=== PATIENT | female | born 1990 | race Caucasian/White ===

== ENCOUNTER 2017-11-22 14:01 | Inpatient (IN) | payer OTHER ==
[2017-11-22] VITALS (60 sets, daily range): BP systolic 92; BP diastolic 77; PULSE 85–118; RESP 15; TEMP 98
[~2017-11-22] VITALS: Ht 162.6 cm; Wt 93.0 kg
[2017-11-22] MEDS: SODIUM CHLORIDE 0.9% FLUSH 10 ML FLUSH IV FLUSH PRN ×2 (14:30→19:33)
[2017-11-22] MEDS ORDERED: PREN29TA PO (14:51)
[2017-11-22] MEDS ORDERED: OMEGCAP PO (14:52)
[2017-11-22] MEDS ORDERED: DINOPROSTONE 10 MG INSERT-LEAVE FOR 12 HOURS VAGINAL ONE (15:00)
[2017-11-22] MEDS ORDERED: SODIUM CHLORIDE 0.9% FLUSH 10 ML FLUSH IV FLUSH PRN (15:00)
[2017-11-22 15:03] LABS: AUTOMATED NEUTROPHIL # 9.6 TH/MM3 (1.8-7.7); BASOPHIL # 0.1 TH/MM3 (0-0.2); BASOPHIL % 0.4 % (0.0-2.0); EOSINOPHIL # 0.1 TH/MM3 (0-0.4); EOSINOPHIL % 0.5 % (0.0-4.0); HEMATOCRIT 39.2 % (35.0-46.0); HEMOGLOBIN 13.1 GM/DL (11.6-15.3); LYMPH % 12.3 % (9.0-44.0); LYMPHOCYTE # 1.4 TH/MM3 (1.0-4.8); MEAN CORPUSCULAR HEMOGLOBIN 30.4 PG (27.0-34.0); MEAN CORPUSCULAR HGB CONC 33.4 % (32.0-36.0); MEAN PLATELET VOLUME 9.3 FL (7.0-11.0); MONO % 4.1 % (0.0-8.0); MONOCYTE # 0.5 TH/MM3 (0-0.9); NEUT % 82.7 % (16.0-70.0); PLATELET COUNT 234 TH/MM3 (150-450); RED BLOOD COUNT 4.31 MIL/MM3 (4.00-5.30); RED CELL DISTRIBUTION WIDTH 14.6 % (11.6-17.2); WHITE BLOOD COUNT 11.6 TH/MM3 (4.0-11.0)
[2017-11-22] MEDS ORDERED: CITRIC ACID-SODIUM CITRATE LIQ 30 ML UDC PO SCH (15:15)
[2017-11-22] MEDS ORDERED: LACTATED RINGER'S 1000 ML BOLUS IV PRN (15:15)
[2017-11-22] MEDS ORDERED: LIDOCAINE HCL 1% 50 ML VIAL INFIL PRN (15:15)
[2017-11-22] MEDS ORDERED: NS 1000 ML IV PRN (15:15)
[2017-11-22] MEDS ORDERED: OXYTOCIN 30 UNITS 500ML PREMIX IV ONE (15:15)
[2017-11-22] MEDS ORDERED: NS 500 ML BOLUS IV PRN (15:15)
[2017-11-22] MEDS ORDERED: LIDOCAINE HCL 1% 50 ML VIAL I-DERMAL PRN (15:15)
[2017-11-22] MEDS ORDERED: OXYTOCIN 30 UNITS/NS 500ML PREMIX IV PRN (15:15)
[2017-11-22] MEDS ORDERED: MINERAL OIL 10 ML VIAL TOPICAL PRN (15:15)
[2017-11-22 15:20] LABS: BACTERIA, URINE RARE /hpf; BILIRUBIN, URINE NEG (NEG); BLOOD, URINE NEG (NEG); GLUCOSE,URINE NEG (NEG); KETONE, URINE NEG (NEG); NITRITE,URINE NEG (NEG); URINE COLOR YELLOW (YELLW/STRAW); URINE LEUKOCYTE ESTERASE NEG (NEG)
[2017-11-22 15:21] LABS: MUCUS URINE FEW /lpf (OCC)
[2017-11-22] MEDS ORDERED: ZOLPIDEM TARTRATE 5 MG TAB PO PRN (21:00)
[2017-11-23] VITALS (297 sets, daily range): BP systolic 91–140; BP diastolic 50–91; PULSE 66–118; RESP 16–18; TEMP 97.9–99.7; O2SAT 95–100
[2017-11-23] MEDS: LACTATED RINGER'S 1000 ML IV SCH ×5 (04:29→22:26)
[2017-11-23] MEDS ORDERED: fentaNYL 2MCG-BUPIV 0.125% INJ 150 ML EPIDURAL ONE (13:46)
[2017-11-23] MEDS ORDERED: ONDANSETRON ODT 4 MG TAB PO PRN (14:00)
[2017-11-23] MEDS ORDERED: ePHEDrine/NS 25 MG/5 ML SYRINGE IV PUSH PRN (17:00)
[2017-11-23] MEDS ORDERED: fentaNYL 2MCG-BUPIV 0.125% 150 ML EPIDURAL PRN (17:00)
[2017-11-23] MEDS ORDERED: DO NOT ADMINISTER ANTICOAGULANTS PRN (17:00)
[2017-11-23] MEDS ORDERED: NO SYSTEM NARCOTICS PRN (17:00)
[2017-11-23] MEDS ORDERED: diphenhydrAMINE HCL 50 MG/ML VIAL ONE (20:25)
[2017-11-23] MEDS ORDERED: diphenhydrAMINE HCL 50 MG/ML VIAL IV PRN (20:45)
[2017-11-24] VITALS (11 sets, daily range): BP systolic 99–130; BP diastolic 54–85; PULSE 88–117; RESP 14–19; TEMP 98.2–100.9; O2SAT 93–96
[2017-11-24] MEDS ORDERED: ACETAMINOPHEN 1000 MG/100 ML 100 ML IV SCH (00:30)
--- NOTE | 2017-11-24 00:49 | PD.LABORPN ---
Subjective Subjective Pt pushing with good effort, good pain control Objective Vital Signs Vital Signs Date Time Temp Pulse Resp B/P (MAP) Pulse Ox O2 Delivery O2 Flow Rate FiO2 11/24/17 00:17 100.9 11/23/17 23:50 96 100 11/23/17 23:45 98 100 11/23/17 23:40 96 100 11/23/17 23:39 16 11/23/17 23:35 107 100 11/23/17 23:31 83 136/76 (96) 11/23/17 23:30 85 100 11/23/17 23:25 90 100 11/23/17 23:20 93 100 11/23/17 23:15 99 100 11/23/17 23:10 102 100 11/23/17 23:05 93 100 11/23/17 23:01 95 134/72 (92) 11/23/17 23:00 95 100 11/23/17 22:55 95 100 11/23/17 22:50 93 100 11/23/17 22:45 98 100 11/23/17 22:40 95 100 11/23/17 22:37 99.5 17 11/23/17 22:35 103 100 11/23/17 22:31 90 121/85 (97) 11/23/17 22:30 94 100 11/23/17 22:25 102 100 11/23/17 22:20 89 100 11/23/17 22:15 90 100 11/23/17 22:10 85 100 11/23/17 22:05 86 100 11/23/17 22:01 88 129/83 (98) 11/23/17 22:00 90 100 11/23/17 21:55 89 100 11/23/17 21:50 96 100 11/23/17 21:45 96 100 11/23/17 21:40 97 100 11/23/17 21:35 96 100 11/23/17 21:31 93 121/79 (93) 11/23/17 21:30 95 100 11/23/17 21:25 106 100 11/23/17 21:20 103 100 11/23/17 21:15 109 100 11/23/17 21:11 98.4 11/23/17 21:10 98 100 11/23/17 21:05 94 100 11/23/17 21:01 94 118/82 (94) 621/18 21:00 92 100 6/21/18 20:55 89 100 6/21/18 20:50 89 100 6/21/18 20:45 92 100 6/21/18 20:40 95 100 6/21/18 20:35 85 100 6/21/18 20:31 79 99/66 (77) 6/21/18 20:30 77 100 6/21/18 20:28 99.7 16 6/21/18 20:25 101 100 6/21/18 20:20 96 99 6/21/18 20:15 98 99 6/21/18 20:01 83 105/83 (90) 6/21/18 20:00 91 99 6/21/18 19:55 88 99 6/21/18 19:50 90 100 6/21/18 19:45 18 6/21/18 19:40 100 100 6/21/18 19:35 99 100 6/21/18 19:31 95 116/62 (80) 6/21/18 19:30 104 100 6/21/18 19:25 97 100 6/21/18 19:20 99 100 6/21/18 19:15 99 100 6/21/18 19:05 98 100 6/21/18 19:01 92 118/63 (81) 621/18 19:00 96 100 6/21/18 18:55 102 100 6/21/18 18:50 95 98 6/21/18 18:45 95 100 6/21/18 18:40 102 100 6/21/18 18:35 98 6/21/18 18:35 100 6/21/18 18:31 86 104/59 (74) 6/21/18 18:30 100 6/21/18 18:30 101 6/21/18 18:25 91 6/21/18 18:25 100 6/21/18 18:20 100 6/21/18 18:20 93 6/21/18 18:17 98.4 16 6/21/18 18:15 87 6/21/18 18:15 100 6/21/18 18:10 87 6/21/18 18:10 100 6/21/18 18:05 88 6/21/18 18:05 100 6/21/18 18:01 87 109/57 (74) 6/21/18 18:00 94 11/23/17 18:00 100 11/23/17 17:55 87 11/23/17 17:55 100 11/23/17 17:50 83 11/23/17 17:50 100 11/23/17 17:45 100 11/23/17 17:45 98.0 11/23/17 17:45 85 11/23/17 17:40 100 11/23/17 17:40 95 11/23/17 17:35 97 11/23/17 17:35 100 11/23/17 17:31 87 108/50 (69) 11/23/17 17:30 100 11/23/17 17:30 90 11/23/17 17:25 90 11/23/17 17:25 95 11/23/17 17:20 85 11/23/17 17:20 100 11/23/17 17:15 100 11/23/17 17:15 94 11/23/17 17:05 100 11/23/17 17:05 74 11/23/17 17:01 70 112/63 (79) 11/23/17 17:00 99 11/23/17 17:00 89 11/23/17 16:55 100 11/23/17 16:55 71 11/23/17 16:50 72 100 11/23/17 16:45 96 100 Objective Pelvic Exam: Cervix: complete/100 %/+1, some caput noted Dilatation: [-] Effacement: [-] Station: [-] Presentation: [-] Membranes: [intact or ruptured] Uterine Contractions: ctxs q 2-3 min FHT's: Category: 170's , accelerations, variables with pushing Baseline: [-] Reactive: [-] Variability: [-] Decels: [-] Weeks Gestation: 39 Assessment/Plan Assessment and Plan 26 yo wf G1 at 39 wks with oligo with DAVID 4 cm , cervidil last pm, pitocin all day, complete at 1130 pm, pushing x 1 hour with good effort, little descent so far, tachycardia with maternal temp 1. keep pushing 2. iv tylenol 3. assess for descent in short time Shirley Lawler MD Nov 24, 2017 00:49
--- NOTE | 2017-11-24 02:11 | PD.LABORPN ---
Subjective Subjective Pt tired from pushing Objective Vital Signs Vital Signs Date Time Temp Pulse Resp B/P (MAP) Pulse Ox O2 Delivery O2 Flow Rate FiO2 11/24/17 02:02 98.6 11/24/17 00:17 100.9 11/23/17 23:50 96 100 11/23/17 23:45 98 100 11/23/17 23:40 96 100 11/23/17 23:39 16 11/23/17 23:35 107 100 11/23/17 23:31 83 136/76 (96) 11/23/17 23:30 85 100 11/23/17 23:25 90 100 11/23/17 23:20 93 100 11/23/17 23:15 99 100 11/23/17 23:10 102 100 11/23/17 23:05 93 100 11/23/17 23:01 95 134/72 (92) 11/23/17 23:00 95 100 11/23/17 22:55 95 100 11/23/17 22:50 93 100 11/23/17 22:45 98 100 11/23/17 22:40 95 100 11/23/17 22:37 99.5 17 11/23/17 22:35 103 100 11/23/17 22:31 90 121/85 (97) 11/23/17 22:30 94 100 11/23/17 22:25 102 100 11/23/17 22:20 89 100 11/23/17 22:15 90 100 11/23/17 22:10 85 100 11/23/17 22:05 86 100 11/23/17 22:01 88 129/83 (98) 11/23/17 22:00 90 100 11/23/17 21:55 89 100 11/23/17 21:50 96 100 11/23/17 21:45 96 100 11/23/17 21:40 97 100 11/23/17 21:35 96 100 11/23/17 21:31 93 121/79 (93) 11/23/17 21:30 95 100 11/23/17 21:25 106 100 11/23/17 21:20 103 100 11/23/17 21:15 109 100 11/23/17 21:11 98.4 11/23/17 21:10 98 100 11/23/17 21:05 94 100 6/21/18 21:01 94 118/82 (94) 621/18 21:00 92 100 6/21/18 20:55 89 100 6/21/18 20:50 89 100 6/21/18 20:45 92 100 6/21/18 20:40 95 100 6/21/18 20:35 85 100 6/21/18 20:31 79 99/66 (77) 621/18 20:30 77 100 6/21/18 20:28 99.7 16 6/21/18 20:25 101 100 6/21/18 20:20 96 99 6/21/18 20:15 98 99 6/21/18 20:01 83 105/83 (90) 6/18 20:00 91 99 6/21/18 19:55 88 99 6/21/18 19:50 90 100 6/21/18 19:45 18 6//18 19:40 100 100 6/21/18 19:35 99 100 6//18 19:31 95 116/62 (80) 6/18 19:30 104 100 6/21/18 19:25 97 100 6/21/18 19:20 99 100 6/21/18 19:15 99 100 6/21/18 19:05 98 100 6//18 19:01 92 118/63 (81) 6/18 19:00 96 100 6/21/18 18:55 102 100 6/21/18 18:50 95 98 6/21/18 18:45 95 100 6/21/18 18:40 102 100 6/21/18 18:35 98 6/21/18 18:35 100 6/21/18 18:31 86 104/59 (74) 6/18 18:30 100 6/21/18 18:30 101 6/21/18 18:25 91 6/21/18 18:25 100 6/21/18 18:20 100 6/21/18 18:20 93 6/21/18 18:17 98.4 16 6/21/18 18:15 87 6/21/18 18:15 100 6/21/18 18:10 87 6/21/18 18:10 100 Objective Pelvic Exam: Cervix: caput enlargening/vtx at +1 still after 2 hours of good pushing Dilatation: [-] Effacement: [-] Station: [-] Presentation: [-] Membranes: [intact or ruptured] Uterine Contractions:q 2-3 min FHT's: Category:170's variable with pushing, accelerations noted Baseline: [-] Reactive: [-] Variability: [-] Decels: [-] Weeks Gestation: 39 Assessment/Plan Assessment and Plan 26 yo wf G1 at 39 wks for induction due to oligo with arrest of descent in transverse position...rec c/s, services notified, pt and counselled and agree Shirley Lawler MD Nov 24, 2017 02:11
[2017-11-24] MEDS ORDERED: MORPHINE SULFATE PF 5 MG/10 ML VIAL ONE (02:13)
[2017-11-24] MEDS ORDERED: KETOROLAC TROMETHAMINE 60 MG/2 ML (IM) VIAL IM PRN ×2 (02:15)
[2017-11-24] MEDS ORDERED: SIMETHICONE 80 MG CHEWABLE TAB PO PRN (02:15)
[2017-11-24] MEDS ORDERED: oxyCODONE/ACETAMINOPHEN 5 MG/325 MG TAB PO PRN (02:15)
[2017-11-24] MEDS ORDERED: OXYTOCIN 30 UNITS-500ML PREMIX 500 ML IV ONE (02:15)
[2017-11-24] MEDS ORDERED: SODIUM CHLORIDE 0.9% FLUSH 10 ML FLUSH IV FLUSH PRN (02:15)
[2017-11-24] MEDS ORDERED: ONDANSETRON ODT 4 MG TAB PO PRN (02:15)
[2017-11-24] MEDS ORDERED: EPIDURAL-DIPHENHYDRAMINE HCL 50 MG/ML VIAL IV PUSH PRN (05:45)
[2017-11-24] MEDS ORDERED: EPIDURAL-DO NOT ADMINISTER ANTICOAGULANTS PRN (05:45)
[2017-11-24] MEDS ORDERED: EPIDURAL-NALOXONE HCL 0.4 MG/ML AMP IV PUSH PRN (05:45)
[2017-11-24] MEDS ORDERED: EPIDURAL-NO SYSTEMIC NARCOTICS PRN (05:45)
[2017-11-24] MEDS ORDERED: EPIDURAL-DIPHENHYDRAMINE HCL 50 MG CAP PO PRN (05:45)
[2017-11-24] MEDS ORDERED: LACTATED RINGER'S 1000 ML INJ 1,000 ML IV SCH (07:07)
[2017-11-24] MEDS ORDERED: OXYTOCIN 30 UNITS-500ML PREMIX 500 ML IV PRN (07:15)
[2017-11-24] MEDS: SODIUM CHLORIDE 0.9% FLUSH 10 ML FLUSH IV FLUSH SCH ×2 (09:00→21:00)
[2017-11-24] MEDS ORDERED: LACTATED RINGER'S 1000 ML INJ 1,000 ML IV ONE (12:00)
[2017-11-24] MEDS ORDERED: OXYTOCIN 10 UNIT/ML AMP IV ONE (12:00)
[2017-11-24] MEDS ORDERED: ceFAZolin INJ 1,000 MG VIAL IV ONE (12:00)
[2017-11-24] MEDS ORDERED: ONDANSETRON HCL 4 MG/2 ML VIAL IV ONE (12:00)
[2017-11-24] MEDS ORDERED: LIDOCAINE 2%/EPINEPHrine PF 1:200,000 20ML SDV OTHER ONE (12:00)
[2017-11-24] MEDS ORDERED: KETOROLAC TROMETHAMINE 30 MG/ML (IVP) VIAL IV PUSH ONE (12:00)
[2017-11-24] MEDS ORDERED: PHENYLEPH/NS 1000 MCG/10 ML SYR IV ONE (12:00)
--- NOTE | 2017-11-24 12:29 | HHI.OB ---
Subjective Post Operative Day: 0 Remarks Pt doing well, good pain control, discussed baby and nicu Objective Vitals/I&O Vital Signs Date Time Temp Pulse Resp B/P (MAP) Pulse Ox O2 Delivery O2 Flow Rate FiO2 11/24/17 08:51 98.2 103 18 130/76 (94) 96 11/24/17 05:36 98.4 98 17 118/71 (87) 11/24/17 05:34 16 11/24/17 04:36 98.3 11/24/17 04:00 99 16 106/59 (75) 11/24/17 03:45 96 16 99/54 (69) 11/24/17 03:30 88 14 104/55 (71) 11/24/17 03:25 98.4 105 16 11/24/17 03:25 118/85 (96) 11/24/17 02:02 98.6 11/24/17 00:17 100.9 11/23/17 23:50 96 100 11/23/17 23:45 98 100 11/23/17 23:40 96 100 11/23/17 23:39 16 11/23/17 23:35 107 100 11/23/17 23:31 83 136/76 (96) 11/23/17 23:30 85 100 11/23/17 23:25 90 100 11/23/17 23:20 93 100 11/23/17 23:15 99 100 11/23/17 23:10 102 100 11/23/17 23:05 93 100 11/23/17 23:01 95 134/72 (92) 11/23/17 23:00 95 100 11/23/17 22:55 95 100 11/23/17 22:50 93 100 11/23/17 22:45 98 100 11/23/17 22:40 95 100 11/23/17 22:37 99.5 17 11/23/17 22:35 103 100 11/23/17 22:31 90 121/85 (97) 11/23/17 22:30 94 100 11/23/17 22:25 102 100 11/23/17 22:20 89 100 11/23/17 22:15 90 100 11/23/17 22:10 85 100 11/23/17 22:05 86 100 11/23/17 22:01 88 129/83 (98) 6/21/18 22:00 90 100 6/21/18 21:55 89 100 6/21/18 21:50 96 100 6/21/18 21:45 96 100 6/21/18 21:40 97 100 6/21/18 21:35 96 100 6/21/18 21:31 93 121/79 (93) 6/18 21:30 95 100 621/18 21:25 106 100 621/18 21:20 103 100 621/18 21:15 109 100 6/21/18 21:11 98.4 6/21/18 21:10 98 100 621/18 21:05 94 100 621/18 21:01 94 118/82 (94) 6/18 21:00 92 100 621/18 20:55 89 100 621/18 20:50 89 100 6/18 20:45 92 100 21/18 20:40 95 100 11/23/18 20:35 85 100 6/18 20:31 79 99/66 (77) 11/23/18 20:30 77 100 6/18 20:28 99.7 16 6/18 20:25 101 100 6/18 20:20 96 99 621/18 20:15 98 99 6/18 20:01 83 105/83 (90) 11/23/18 20:00 91 99 6/18 19:55 88 99 621/18 19:50 90 100 11/23/18 19:45 18 6/18 19:40 100 100 6/18 19:35 99 100 621/18 19:31 95 116/62 (80) 11/23/18 19:30 104 100 621/18 19:25 97 100 621/18 19:20 99 100 6/21/18 19:15 99 100 6/18 19:05 98 100 621/18 19:01 92 118/63 (81) 6/18 19:00 96 100 621/18 18:55 102 100 621/18 18:50 95 98 6/21/18 18:45 95 100 621/18 18:40 102 100 621/18 18:35 98 6/21/18 18:35 100 6/18 18:31 86 104/59 (74) 618 18:30 100 6/18 18:30 101 6/18 18:25 91 618 18:25 100 6/18 18:20 100 618 18:20 93 618 18:17 98.4 16 18 18:15 87 618 18:15 100 18 18:10 87 618 18:10 100 618 18:05 88 618 18:05 100 618 18:01 87 109/57 (74) 18 18:00 94 18 18:00 100 18 17:55 87 18 17:55 100 18 17:50 83 18 17:50 100 18 17:45 100 18 17:45 98.0 18 17:45 85 18 17:40 100 18 17:40 95 18 17:35 97 18 17:35 100 18 17:31 87 108/50 (69) 18 17:30 100 18 17:30 90 18 17:25 90 18 17:25 95 18 17:20 85 18 17:20 100 18 17:15 100 18 17:15 94 18 17:05 100 18 17:05 74 18 17:01 70 112/63 (79) 18 17:00 99 18 17:00 89 18 16:55 100 11/23/18 16:55 71 6/18 16:50 72 100 6/18 16:45 96 100 11/23/18 16:40 100 6/18 16:40 75 618 16:35 73 618 16:35 100 6/21/18 16:31 71 105/68 (80) 618 16:30 77 6/21/18 16:30 100 6//18 16:25 73 100 6/18 16:20 68 100 618 16:15 82 100 6/18 16:10 100 6/18 16:10 81 618 16:05 100 618 16:05 75 618 16:01 67 110/69 (83) 18 16:00 99 618 16:00 69 18 15:55 100 618 15:55 66 618 15:50 100 618 15:50 94 6 15:45 83 6 15:45 100 618 15:40 77 618 15:40 100 618 15:38 79 16 112/69 (83) 11/23/17 15:37 98.0 18 15:35 100 618 15:35 82 618 15:31 69 113/68 (83) 18 15:30 100 618 15:30 76 618 15:25 75 618 15:25 98 618 15:20 96 618 15:20 81 618 15:20 80 6/18 15:16 90 114/63 (80) 11/23/17 15:15 96 618 15:15 78 618 15:15 80 6/18 15:10 93 6/18 15:10 90 618 15:10 98 618 15:05 92 618 15:05 93 618 15:05 99 618 15:01 93 114/70 (85) 6 15:00 98 6/18 15:00 100 618 15:00 100 618 14:55 97 618 14:55 100 18 14:55 96 618 14:50 92 6/21/18 14:50 92 6/18 14:50 98 11/23/17 14:49 93 109/51 (70) 11/23/17 14:46 100 113/62 (79) 11/23/17 14:45 98 11/23/17 14:45 99 11/23/17 14:45 98 11/23/17 14:44 98.3 95 111/58 (75) 11/23/17 14:42 99 110/61 (77) 11/23/17 14:40 102 11/23/17 14:40 96 11/23/17 14:40 100 115/61 (79) 99 11/23/17 14:38 98 110/59 (76) 11/23/17 14:37 87 116/63 (80) 11/23/17 14:35 101 11/23/17 14:35 101 99 11/23/17 14:34 101 125/73 (90) 11/23/17 14:32 99 129/73 (91) 11/23/17 14:31 91 136/78 (97) 11/23/17 14:30 87 100 11/23/17 14:30 84 11/23/17 14:25 78 11/23/17 14:25 78 100 11/23/17 14:20 90 11/23/17 14:20 96 134/79 (97) 11/23/17 14:15 80 11/23/17 14:10 95 11/23/17 14:00 116 11/23/17 13:55 81 11/23/17 13:50 113 11/23/17 13:46 84 106/91 (96) 11/23/17 13:45 70 11/23/17 13:40 73 11/23/17 13:35 70 11/23/17 13:31 77 130/75 (93) 11/23/17 13:30 75 11/23/17 13:25 89 11/23/17 13:22 85 124/86 (99) 11/23/17 13:20 72 11/23/17 13:15 88 11/23/17 13:15 91 91/55 (67) Result Diagram: 11/22/17 1440 Objective Remarks GENERAL: Well-nourished, well-developed patient. CARDIOVASCULAR: Regular rate and rhythm without murmurs, gallops, or rubs. RESPIRATORY: Breath sounds equal bilaterally. No accessory muscle use. ABDOMEN/GI: Abdomen soft, non-tender, bowel sounds present. Incision: Clean, dry and intact. Fundus: Firm, non-tender at umbilicus. GENITOURINARY: Light to moderate bleeding. EXTREMITIES: No cyanosis or edema, non-tender, without signs of DVT. Medications and IVs Current Medications Medications (Trade) Dose Ordered Sig/Katie Route Start Time Stop Time Status Last Admin (NS Flush) 2 ml UNSCH PRN IV FLUSH 11/22/17 15:00 11/22/17 19:33 (NS Flush) 2 ml UNSCH PRN IV FLUSH 11/22/17 15:00 Oxytocin 500 ml @ 0 mls/hr TITRATE PRN IV 11/22/17 15:15 11/23/17 05:08 Lactated Ringer's 1,000 ml @ 125 mls/hr Q8H IV 11/22/17 15:15 11/23/17 22:26 Lactated Ringer's 1,000 ml @ 3,000 mls/hr BOLUS PRN IV 11/22/17 15:15 Sodium Chloride 500 ml @ 1,000 mls/hr BOLUS PRN IV 11/22/17 15:15 Sodium Chloride 1,000 ml @ 100 mls/hr Q10H PRN IV 11/22/17 15:15 (Bicitra Liq) 30 ml EXECUTIVE BUSINESS COACH PO 11/22/17 15:15 11/25/17 15:14 (fentaNYL INJ) 50 mcg Q1H PRN IV PUSH 11/22/17 15:15 11/23/17 14:17 (fentaNYL INJ) 100 mcg Q1H PRN IV PUSH 11/22/17 15:15 11/23/17 13:18 (Muri-Lube Oil) 10 ml UNSCH PRN TOPICAL 11/22/17 15:15 (Ambien) 5 mg HS PRN PO 11/22/17 21:00 11/22/17 22:19 (Zofran Odt) 4 mg Q4H PRN PO 11/23/17 14:00 ([facility] [place] Nursing Information) No systemic narcotics to be given except... UNSCH PRN .XX 11/23/17 17:00 11/24/17 16:59 ([facility] [place] Nursing Information) DO NOT ADMINISTER ANY ANTICOAGUL... UNSCH PRN .XX 11/23/17 17:00 11/24/17 16:59 Fentanyl/ Bupivacaine/ Sodium Chlor 150 ml @ 0 mls/hr TITRATE PRN EPIDURAL 11/23/17 17:00 11/24/17 01:11 (ePHEDrine/NS 25 MG/5 ML SYR) 10 mg UNSCH PRN IV PUSH 11/23/17 17:00 11/24/17 16:59 (Benadryl Inj) 25 mg Q6H PRN IV 11/23/17 20:45 11/23/17 20:27 Lactated Ringer's 1,000 ml @ 100 mls/hr Q10H IV 11/24/17 07:07 11/25/17 03:06 Oxytocin 500 ml @ 100 mls/hr UNSCH X1 PRN IV 11/24/17 07:15 11/25/17 07:14 (NS Flush) 2 ml BID IV FLUSH 11/24/17 09:00 (NS Flush) 2 ml UNSCH PRN IV FLUSH 11/24/17 02:15 (Mylicon Chew) 80 mg QID PRN PO 11/24/17 02:15 (Toradol Inj) 60 mg UNSCH X1 PRN IM 11/24/17 02:15 11/25/17 02:14 (Toradol Inj) 30 mg Q6H PRN IM 11/24/17 02:15 11/25/17 02:14 (Percocet 5-325 Mg) 1 tab Q4H PRN PO 11/24/17 02:15 (Percocet 5-325 Mg) 2 tab Q4H PRN PO 11/24/17 02:15 (M-M-R Ii Inj) 0.5 ml ONCE ONCE SQ 11/25/17 16:00 11/25/17 16:01 (Boostrix Inj) 0.5 ml ONCE ONCE IM 11/25/17 16:00 11/25/17 16:01 (Zofran Odt) 4 mg Q6H PRN PO 11/24/17 02:15 Cefazolin Sodium 1000 mg/Sodium Chloride 100 ml @ 200 mls/hr Q8H IV 11/24/17 10:00 11/24/17 18:29 11/24/17 09:56 ([facility] [place] Nursing Information) NO SYSTEMIC NARCOTICS TO BE GIVEN FO... UNSCH PRN .XX 11/24/17 05:45 11/25/17 05:44 (Narcan Inj) 0.4 mg UNSCH PRN IV PUSH 11/24/17 05:45 11/25/17 05:44 (Benadryl Inj) 25 mg Q6H PRN IV PUSH 11/24/17 05:45 11/25/17 05:44 (Benadryl) 50 mg Q6H PRN PO 11/24/17 05:45 11/25/17 05:44 11/24/17 05:49 ([facility] [place] Nursing Information) ALL NURSING DEPARTMENTS UNSCH PRN .XX 11/24/17 05:45 11/25/17 05:44 Assessment/Plan Assessment and Plan POD #v 0 s/p primary c/s doing well, routine care Shirley Lawler MD Nov 24, 2017 12:29
[2017-11-24] MEDS: oxyCODONE/ACETAMINOPHEN 5 MG/325 MG TAB PO PRN (14:46)
[2017-11-24] MEDS: LACTATED RINGER'S 1000 ML IV SCH (23:15)
--- NOTE | 2017-11-24 23:55 | HHI.OB ---
Subjective Post Day: 1 Remarks Patient is 20 hours post op from CS. Requesting DC so [facility] [place] [facility]. She is aware that this it is early DC and she needs to take care of herself and get rest Objective Vitals/I&O Vital Signs Date Time Temp Pulse Resp B/P (MAP) Pulse Ox O2 Delivery O2 Flow Rate FiO2 11/24/17 12:26 98.4 117 18 130/74 (92) 93 11/24/17 08:51 98.2 103 18 130/76 (94) 96 11/24/17 05:36 98.4 98 17 118/71 (87) 11/24/17 05:34 16 11/24/17 04:36 98.3 11/24/17 04:00 99 16 106/59 (75) 11/24/17 03:45 96 16 99/54 (69) 11/24/17 03:30 88 14 104/55 (71) 11/24/17 03:25 98.4 105 16 11/24/17 03:25 118/85 (96) 11/24/17 02:02 98.6 11/24/17 00:17 100.9 Objective Remarks GENERAL: Well-nourished, well-developed patient. ABDOMEN/GI: Abdomen soft, non-tender. Fundus: Firm, non-tender at umbilicus. GENITOURINARY: Light to moderate bleeding. EXTREMITIES: No cyanosis or edema, non-tender, without signs of DVT. Medications and IVs Current Medications Medications (Trade) Dose Ordered Sig/Katie Route Start Time Stop Time Status Last Admin (NS Flush) 2 ml UNSCH PRN IV FLUSH 11/22/17 15:00 11/22/17 19:33 (NS Flush) 2 ml UNSCH PRN IV FLUSH 11/22/17 15:00 Oxytocin 500 ml @ 0 mls/hr TITRATE PRN IV 11/22/17 15:15 11/23/17 05:08 Lactated Ringer's 1,000 ml @ 125 mls/hr Q8H IV 11/22/17 15:15 11/23/17 22:26 Lactated Ringer's 1,000 ml @ 3,000 mls/hr BOLUS PRN IV 11/22/17 15:15 Sodium Chloride 500 ml @ 1,000 mls/hr BOLUS PRN IV 11/22/17 15:15 Sodium Chloride 1,000 ml @ 100 mls/hr Q10H PRN IV 11/22/17 15:15 (Bicitra Liq) 30 ml SWISS MACHINIST PO 11/22/17 15:15 11/25/17 15:14 (fentaNYL INJ) 50 mcg Q1H PRN IV PUSH 11/22/17 15:15 11/23/17 14:17 (fentaNYL INJ) 100 mcg Q1H PRN IV PUSH 11/22/17 15:15 11/23/17 13:18 (Muri-Lube Oil) 10 ml UNSCH PRN TOPICAL 11/22/17 15:15 (Ambien) 5 mg HS PRN PO 11/22/17 21:00 11/22/17 22:19 (Zofran Odt) 4 mg Q4H PRN PO 11/23/17 14:00 Fentanyl/ Bupivacaine/ Sodium Chlor 150 ml @ 0 mls/hr TITRATE PRN EPIDURAL 11/23/17 17:00 11/24/17 01:11 (Benadryl Inj) 25 mg Q6H PRN IV 11/23/17 20:45 11/23/17 20:27 Lactated Ringer's 1,000 ml @ 100 mls/hr Q10H IV 11/24/17 07:07 11/25/17 03:06 11/24/17 14:50 Oxytocin 500 ml @ 100 mls/hr UNSCH X1 PRN IV 11/24/17 07:15 11/25/17 07:14 (NS Flush) 2 ml BID IV FLUSH 11/24/17 09:00 (NS Flush) 2 ml UNSCH PRN IV FLUSH 11/24/17 02:15 (Mylicon Chew) 80 mg QID PRN PO 11/24/17 02:15 11/24/17 20:15 (Toradol Inj) 60 mg UNSCH X1 PRN IM 11/24/17 02:15 11/25/17 02:14 11/24/17 14:50 (Toradol Inj) 30 mg Q6H PRN IM 11/24/17 02:15 11/25/17 02:14 (Percocet 5-325 Mg) 1 tab Q4H PRN PO 11/24/17 02:15 11/24/17 14:46 (Percocet 5-325 Mg) 2 tab Q4H PRN PO 11/24/17 02:15 (M-M-R Ii Inj) 0.5 ml ONCE ONCE SQ 11/25/17 16:00 11/25/17 16:01 (Boostrix Inj) 0.5 ml ONCE ONCE IM 11/25/17 16:00 11/25/17 16:01 (Zofran Odt) 4 mg Q6H PRN PO 11/24/17 02:15 [place] [place] NO SYSTEMIC NARCOTICS TO BE GIVEN FO... UNSCH PRN .XX 11/24/17 05:45 11/25/17 05:44 (Narcan Inj) 0.4 mg UNSCH PRN IV PUSH 11/24/17 05:45 11/25/17 05:44 (Benadryl Inj) 25 mg Q6H PRN IV PUSH 11/24/17 05:45 11/25/17 05:44 (Benadryl) 50 mg Q6H PRN PO 11/24/17 05:45 11/25/17 05:44 11/24/17 05:49 [place] ALL NURSING DEPARTMENTS UNSCH PRN .XX 11/24/17 05:45 11/25/17 05:44 Assessment/Plan Assessment and Plan POD #v 0 s/p primary c/s doing well, routine care. She is being DC 20 hours after surgery to be with Jake Deng MD Nov 24, 2017 23:55
--- NOTE | 2017-11-24 23:57 | HHI.DCPOC ---
Discharge Care Plan Diagnosis: (1) delivery delivered Report Symptoms to Your Doctor -Temperature above 100.5 degrees -Redness, of incision or excessive or foul smelling drainage -Unusual pain or calf pain -Increased vaginal bleeding -Painful or difficulty urinating -Feelings of extreme sadness or anxiety after 2 weeks Goals to Promote Your Health * To prevent worsening of your condition and complications * To maintain your health at the optimal level Directions to Meet Your Goals Take your medications as prescribed Follow your dietary instruction Follow activity as directed Ensure plenty of rest for recovery Drink fluids for hydration Keep your appointments as scheduled Take your immunizations and boosters as scheduled If your symptoms worsen call your PCP, if no PCP go to Urgent Care Center or Emergency Room Smoking is Dangerous to Your Health. Avoid second hand smoke Call the 24-hour crisis hotline for domestic abuse at Jake Verma MD Nov 24, 2017 23:57
[2017-11-24] MEDS ORDERED: OXYC1TAB63 PO (23:58)
--- NOTE | 2017-11-25 | HHI.DS ---
Admission Date Nov 22, 2017 at 14:01 Discharge Date: Nov 24, 2017 Admitting Diagnosis Diagnosis: (1) delivery delivered Diagnosis: Principal ICD Codes: O82 - Encounter for delivery without indication : Primary Brief History 26 yo for induction after 40 weeks Hospital Course Patient labored all day and reached 10 cm. She pushed for 2 hours and then had CS for arrest of descent. Baby went to NICU and is being sent to [facility] Condition on Discharge: Good Discharge Disposition: Discharge Home Discharge Instructions Diet Instructions: As Tolerated, No Restrictions Activities You Can Perform: Pelvic Rest Activities to Avoid: Driving for 24 hrs Follow up Referrals: LOG CLERK - 2 Weeks @ [facility] with Jake Verma MD New Medications: Oxycodone HCl/Acetaminophen (Oxycodone-Acetaminophen 5-325) 5 Mg-325 Mg Tablet 1 TAB PO Q4H PRN for PAIN SCALE 3 TO 5, #30 TAB Continued Medications: Fish Oil-Cholecalciferol ([place]-3 Fish Oil/Vitamin) 1,000-1,000 Mg Cap 1 CAP PO DAILY for Nutritional Supplement, CAP 0 Refills Vit-Iron Carbonyl ( Plus Iron 29-1 mg) 29 Mg Iron-1 Mg Tab 1 TAB PO DAILY for Nutritional Supplement, #30 TAB 0 Refills Jake Verma MD Nov 25, 2017 00:00
[2017-11-25] MEDS: oxyCODONE/ACETAMINOPHEN 5 MG/325 MG TAB PO PRN (00:01)
--- NOTE | 2017-11-25 02:59 | MH ---
cc: Shirley Lawler MD DATE OF ADMISSION: 11/22/2017 REASON FOR ADMISSION: Term with oligohydramnios. HISTORY OF PRESENT ILLNESS: The patient is a 26-year-old white female, G1, at approximately 39 weeks' gestation, who complained of decreased movement in the office and was found on ultrasound to have an DAVID of 4.8. She also had an estimated weight at that time of 7 pounds 13 ounces. I discussed with her the findings and my recommendations for induction of labor, and she understood and agreed. We discussed the need for cervical ripening based on her cervical exam. Currently she is without complaint. She is reporting movement; it is just lessened overall. No bleeding, no real contractions, no rupture of membranes. PAST MEDICAL HISTORY: Negative. PAST SURGICAL HISTORY: Negative. MEDICATIONS: vitamins. ALLERGIES: NONE. SOCIAL HISTORY: No tobacco, alcohol or drug use. She is and lives with her . FAMILY HISTORY: Noncontributory. GYNECOLOGICAL HISTORY: No abnormal Paps. No history of STDs. OBSTETRICAL HISTORY: G1. REVIEW OF SYSTEMS: Negative. PHYSICAL EXAMINATION: VITAL SIGNS: Stable. She is afebrile. CHEST: Clear to auscultation bilaterally. CARDIAC: Regular rate and rhythm without murmur, rub or gallop. ABDOMEN: Soft, nontender, nondistended. It is gravid, with a fundal height of 40. No CVA tenderness. No hepatosplenomegaly. No hernias. PELVIC: A fingertip dilated cervix, probably about 60% effaced, with about a -3 station. External monitoring revealed a baseline in the 140s to 150s, accelerations noted, no decelerations, reactive. Berger reveals no contractions. ASSESSMENT: A 26-year-old white female, G1, at 39 weeks gestation with oligohydramnios. PLAN: Will be for admission, cervical ripening with Cervidil overnight, and plan for Pitocin induction of labor the next morning. MD ANOOP Smith/ISAEL , 09:59 PM , 02:57 AM
--- NOTE | 2017-11-25 03:39 | MP ---
cc: Shirley Lawler MD DATE OF OPERATION: 11/24/2017 DATE OF PROCEDURE: 11/24/2017. PREOPERATIVE DIAGNOSIS: Intrauterine at 39 weeks gestation with oligohydramnios, with induction of labor, with arrest of descent of labor and meconium. POSTOPERATIVE DIAGNOSIS: Intrauterine at 39 weeks gestation with oligohydramnios, with induction of labor, with arrest of descent of labor and meconium. PROCEDURE PERFORMED: Primary low transverse section. OPERATING SURGEON: Dr. Shirley Lawler. ANESTHESIA: Epidural. FINDINGS IN SURGERY: Included a viable male infant, 8 pounds 15 ounces with Apgars 2 and 7. Normal-appearing tubes and ovaries bilaterally with a very prominent sacrum on exam intraoperatively. BLOOD LOSS: 800 mL. COMPLICATIONS: None. PROCEDURE IN DETAIL: After proper consents were obtained, blood had already been typed and screened, an adequate level of epidural anesthesia was achieved. Dove had already been placed. She was taken to the operating room, where she was sterilely prepped and draped. At this time, using a sharp knife, a Pfannenstiel skin incision was performed. This was carried down to the fascia using the Bovie cautery. The fascia was nicked in the midline and extended superolaterally on each side, with blunt dissection of the muscles off of the fascia. Peritoneum was identified, grasped with 2 hemostats and entered sharply with the Metzenbaum scissors. This incision was extended superiorly and inferiorly, paying close attention to the bladder. The bladder blade was placed. Bladder flap was developed. Bladder blade was replaced. We made a transverse incision in the lower uterine segment and extended that using finger fracture technique. We then delivered the vertex, which was difficult due to how far down it was, and wedged into the vaginal canal. I finally was able to bring it up out of the canal and then we delivered it out through the uterine incision. We attempted a vacuum placement x1 for about 2 seconds, without any help. We then finally delivered the vertex. Bulb suction to the oropharynx and nares. Controlled delivery of the body. Cord was cut x2 and handed to the team in attendance. A viable male with Apgars 2 and 7, weighing 8 pounds 15 ounces. At this time, a cord pH segment was obtained, with the cord pH being 7.22. Cord blood was then obtained. Placenta was removed. Uterus was exteriorized and wiped clean of clots and debris. There was an extension on the right side of the uterine incision. I repaired that using a 1-0 chromic, starting at each apex and meeting in the midline in a running interlocking fashion. Excellent hemostasis was noted. We irrigated the abdominopelvic cavity, placed the uterus back into the cavity. Hemostasis was assured. We reapproximated the muscles on the right side, which I had cut during delivery to increase space for delivery, with 2 interrupted sutures of the 1-0 chromic. I then closed the fascia starting at each apex and meeting in the midline in a running fashion using 0 Vicryl. We irrigated the subcutaneous tissue. Hemostasis was achieved with Bovie cautery. We closed the space using interrupted sutures of 3-0 Vicryl. We then closed the skin using ashley. All sponge, lap, and needle counts were correct x3, and the patient was stable to the recovery room. MD ANOOP Smith/ISAEL , 10:03 PM , 03:38 AM
[2017-11-25] MEDS ORDERED: DIPHTH/TETANUS/ACEL PERTUSSIS (BOOSTER) 0.5 ML VIAL/PFS IM ONE (16:00)
[2017-11-25] MEDS ORDERED: MEASLES, MUMPS, RUBELLA VACCINE 0.5 ML VIAL SQ ONE (16:00)
== END 2017-11-25 01:28 | disposition home or self-care (01) | DRG 765 ==
LOC: H2EB 14:01 → H1EA 11-24 04:51
PROVIDERS: ADMIT Obstetrics & Gynecology; ATTEND Obstetrics & Gynecology
PROC: 3E0P7VZ Introduction of Hormone into Female Reproductive, Via Natural or Artificial Opening (ICD-10-PCS; 2017-11-22)
PROC: 3E0R3BZ Introduction of Anesthetic Agent into Spinal Canal, Percutaneous Approach (ICD-10-PCS; 2017-11-23)
PROC: 00HU33Z Insertion of Infusion Device into Spinal Canal, Percutaneous Approach (ICD-10-PCS; 2017-11-23)
PROC: 10D00Z1 Extraction of Products of Conception, Low, Open Approach (ICD-10-PCS; principal; 2017-11-24)
DX: O41.03X0 Oligohydramnios, third trimester, not applicable or unspecified (principal); O33.0 Maternal care for disproportion due to deformity of maternal pelvic bones; O62.1 Secondary uterine inertia; O77.0 Labor and delivery complicated by meconium in amniotic fluid; Z3A.39 39 weeks gestation of pregnancy; Z37.0 Single live birth
CPT/HCPCS: 59025; 80307; 81001; 82805; 85025; 86900; 86901; G0481; J0131; J0690; J1200; J1885; J2274; J2370; J2405; J2590; J3010; J7120; Q0163